=== PATIENT | female | born 1980 | race American Indian/Alaskan Native ===

== ENCOUNTER 2018-03-31 15:33 | Emergency (ER) | payer OTHER ==
[2018-03-31] MEDS ORDERED: Sodium Chloride 0.9% 1,000 ML IV STA ×2 (16:40→18:23)
[2018-03-31 16:41] VITALS: BMI 37.1
[2018-03-31] MEDS ORDERED: Albuterol-Ipratrop 3 mg / 0.5 (3 ml) UD IH STA ×2 (16:41→17:52)
--- NOTE | 2018-03-31 17:04 | ED PDOC ---
Arrival/HPI - General Historian: Patient - History of Present Illness Narrative History of Present Illness (Text): 03/31/18 17:11 37yr old female with a history of asthma presents today with worsening shortness of breath over the past week. Pt states today she was feeling hot and family member states the patient appeared short of breath with walking. pt states she was seen at [facility] [place] and treated for asthma exacerbation over a week ago. pt states she has been using asthma pump at home without improvement. pt c/o dry cough, upper abdominal pain and chest pain with cough. pt denies dizziness or weakness. family friend states patient looks fatigued. pt denies n/v/d/c. no other c omplaints. Time/Duration: 1 week <Carolyne Wolf - Last Filed: 03/31/18 19:06> <Dav Brooks - Last Filed: 04/01/18 09:52> <Antony Rosen - Last Filed: 04/03/18 18:31> - General Chief Complaint: Respiratory Distress Time Seen by Provider: 03/31/18 16:38 Past Medical History - Provider Review Nursing Documentation Reviewed: Yes - Travel History Have you recently traveled outside [place] w/in the past 3 mons?: No - Tetanus Immunization Tetanus Immunization: Unknown <Carolyne Wolf - Last Filed: 03/31/18 19:06> Family/Social History - Physician Review Nursing Documentation Reviewed: Yes Family/Social History: Unknown Family HX Smoking Status: Never Smoked Hx Alcohol Use: No Hx Substance Use: No <Carolyne Wolf - Last Filed: 03/31/18 19:06> Allergies/Home Meds <Carolyne Wolf - Last Filed: 03/31/18 19:06> <Dav Brooks - Last Filed: 04/01/18 09:52> <Antony Rosen - Last Filed: 04/03/18 18:31> Allergies/Adverse Reactions: Allergies Penicillins Allergy (Verified 03/31/18 16:39) URTICARIA Home Medications: Home Meds Medication Instructions Recorded Confirmed RX: Enalapril Maleate [Vasotec] 20 mg PO DAILY 03/31/18 04/01/18 RX: GlipiZIDE [Glucotrol] 5 mg PO DAILY 03/31/18 04/01/18 RX: Hydrochlorothiazide [Microzide] 12.5 mg PO DAILY 03/31/18 04/01/18 RX: Metformin HCl [Glucophage] 1,000 mg PO BID 03/31/18 04/01/18 RX: Metoprolol Succinate [Toprol 25 mg PO DAILY 03/31/18 04/01/18 Xl] Review of Systems - Review of Systems Constitutional: Fatigue. absent: Fevers ENT: Sinus Congestion. absent: Sore Throat Respiratory: SOB, Cough, Wheezing Cardiovascular: Chest Pain (with cough). absent: Palpitations Gastrointestinal: Abdominal Pain (upper abdominal pain with cough). absent: Constipation, Diarrhea, Nausea, Vomiting Genitourinary Female: absent: Dysuria, Frequency, Hematuria Musculoskeletal: absent: Arthralgias, Back Pain, Neck Pain Skin: absent: Rash, Pruritis Neurological: absent: Headache, Dizziness Psychiatric: absent: Anxiety, Depression <Carolyne Wolf T - Last Filed: 03/31/18 19:06> Physical Exam Vital Signs Reviewed: Yes Vital Signs Temp Pulse Resp BP Pulse Ox 03/31/18 16:25 98.0 F 113 H 20 102/71 100 Temperature: Afebrile Blood Pressure: Normal Pulse: Tachycardic Respiratory Rate: Normal Appearance: Positive for: Well-Appearing, Non-Toxic, Comfortable Pain Distress: None Mental Status: Positive for: Alert and Oriented X 3 - Systems Exam Head: Present: Atraumatic Mouth: Present: Moist Mucous Membranes Pharnyx: Present: Normal Nose (External): Present: Atraumatic Nose (Internal): Present: Normal Inspection Neck: Present: Normal Range of Motion Respiratory/Chest: Present: Good Air Exchange, Wheezes (wheezing noted bilaterally.). No: Clear to Auscultation, Respiratory Distress, Accessory Muscle Use, Decreased Breath Sounds, Tachypneic, Tender to Palpation Cardiovascular: Present: Tachycardic. No: Murmurs Abdomen: No: Tenderness, Distention, Rebound, Guarding Back: Present: Normal Inspection Upper Extremity: Present: Normal ROM Lower Extremity: Present: Normal ROM. No: CALF TENDERNESS Neurological: Present: GCS=15, Speech Normal Skin: Present: Warm, Dry, Normal Color. No: Rashes Psychiatric: Present: Alert, Oriented x 3 <Carolyne Wolf T - Last Filed: 03/31/18 19:06> Vital Signs Temp Pulse Resp BP Pulse Ox 03/31/18 19:55 98.2 F 97 H 18 117/81 97 03/31/18 19:50 98.3 F 113 H 16 116/81 100 03/31/18 18:24 97.8 F 110 H 24 100 03/31/18 16:46 20 100 03/31/18 16:25 98.0 F 113 H 20 102/71 100 <Dav Brooks - Last Filed: 04/01/18 09:52> Vital Signs Temp Pulse Resp BP Pulse Ox 03/31/18 19:55 98.2 F 97 H 18 117/81 97 03/31/18 19:50 98.3 F 113 H 16 116/81 100 03/31/18 18:24 97.8 F 110 H 24 100 03/31/18 16:46 20 100 03/31/18 16:25 98.0 F 113 H 20 102/71 100 <Antony Rosen - Last Filed: 04/03/18 18:31> Medical Decision Making ED Course and Treatment: 03/31/18 17:21 37yr old female with hx of asthma and DM presenting with worsening cough/sob. wheezing noted. pt given Solumedrol and duoneb given. NS iv bolus case discussed in depth with dr. rosen. cbc: wnl cmp; glucose; 340 lipase: wnl d-dimer; elevated trop; wnl UA; + glucose ekg: Sinus tachycardia [address] elevations normal axis and QTC 454 ; reviewed by dr. Rosen. cxr; wnl 03/31/18 18:51 pt reassessment; pt feeling much better after medications; lungs CTA bilaterally. after 1L NS; heart rate improved to 103. 2nd L NS iv bolus ordered. CTA: PENDING impression; asthma exacerbation increase fluids prednisone daily x 4 days albuterol nebulizer 3 times daily as needed for cough zithromax daily x 4 days. Tylenol for pain/fever reduction every 4 hours Follow up with the primary care physician within the next 2 days. Return immediately if symptoms worsen,persist or if new symptoms develop. 03/31/18 19:00 CASE SIGNED OUT TO DR. AMBROCIO PENDING CTA RESULTS; RE-EVALUATION AND DISPOSITION. Reassessment Condition: Re-examined, Improved - RAD Interpretation Radiology Orders: 03/31/18 16:39 CHEST PORTABLE [RAD] Stat - Medication Orders Current Medication Orders: Sodium Chloride (Sodium Chloride 0.9%) 1,000 mls @ 999 mls/hr IV .Q1H1M STA Stop: 03/31/18 17:40 Discontinued Medications Acetaminophen (Tylenol 325mg Tab) 975 mg PO STAT STA Stop: 03/31/18 16:41 Albuterol/Ipratropium (Duoneb 3 Mg/0.5 Mg (3 Ml) Ud) 3 ml IH STAT STA Stop: 03/31/18 16:42 <Carolyne Wolf T - Last Filed: 03/31/18 19:06> ED Course and Treatment: Spoke to Dr. Varghese(morning radiologist) whom after review of CTPE imaging concluded the study as suboptimal and is unable to rule out PE in the lower subsegmental vessels. Call made to patient discussing these findings and the urgency of returning to the ED for reevaluation today expressed. She is agreeable to returning to the ED as soon as possible. 04/01/18 09:52 - Lab Interpretations Lab Results: 03/31/18 17:20 03/31/18 17:20 Lab Results 03/31/18 17:20: PT 11.4, INR 1.00, APTT 30.6, D-Dimer, Quantitative 538 H 03/31/18 17:20: WBC 11.0, RBC 4.73, Hgb 12.9, Hct 39.8, MCV 84.1, MCH 27.3, MCHC 32.4, RDW 13.5, Plt Count 327, MPV 10.7, Gran % 76.5 H, Lymph % (Auto) 16.3 L, [place] % (Auto) 5.8, Eos % (Auto) 1.1 L, Baso % (Auto) 0.3, Gran # 8.43 H, Lymph # (Auto) 1.8, [place] # (Auto) 0.6, Eos # (Auto) 0.1, Baso # (Auto) 0.03 03/31/18 17:20: Sodium 137, Potassium 4.1, Chloride 100, Carbon Dioxide 27, Anion Gap 14, BUN 9, Creatinine 0.7, Est GFR ( Amer) > 60, Est GFR (Non- Af Amer) > 60, Random Glucose 340 H*, Calcium 9.9, Total Bilirubin 0.3, AST 23, ALT 31, Alkaline Phosphatase 71, Lactate Dehydrogenase 353, Total Creatine Kinase 112, Troponin I < 0.01, Total Protein 7.7, Albumin 4.3, Globulin 3.5, Albumin/Globulin Ratio 1.2, Lipase 161 03/31/18 17:00: Urine Color Yellow, Urine Appearance Clear, Urine pH 5.5, Ur Specific [place] 1.015, Urine Protein Negative, Urine Glucose (UA) >=1000, Urine Ketones Negative, Urine Blood Negative, Urine Nitrate Negative, Urine Bilirubin Negative, Urine Urobilinogen 0.2, Ur Leukocyte Esterase Negative - RAD Interpretation Radiology Orders: 03/31/18 16:39 CHEST PORTABLE [RAD] Stat 03/31/18 17:52 ANGIO CHEST PE PROTOCOL [CT] Stat - Medication Orders Current Medication Orders: Discontinued Medications Acetaminophen (Tylenol 325mg Tab) 975 mg PO STAT STA Stop: 03/31/18 16:41 Last Admin: 03/31/18 17:05 Dose: 975 mg [facility] Pain/Vitals Document 03/31/18 17:05 HOUSING RELOCATION (Rec: 03/31/18 17:06 HOUSING RELOCATION [facility]) Pain Reassessment Is This A Pain ReAssessment? Yes Sleep Is patient sleeping during reassessment? No Presence of Pain Presence of Pain Yes Pain Scale Used Protocol: PSCALES Pain Scale Used Numeric Location Pain Location Body Site Chest Description Intermittent Intensity 3 Scale Used Numeric Re-Assess: [facility] Pain/Vitals Document 03/31/18 18:05 HOUSING RELOCATION (Rec: 03/31/18 18:10 HOUSING RELOCATION [facility]) Pain Reassessment Is This A Pain ReAssessment? Yes Sleep Is patient sleeping during reassessment? No Presence of Pain Presence of Pain No Location Scale Used Numeric Albuterol/Ipratropium (Duoneb 3 Mg/0.5 Mg (3 Ml) Ud) 3 ml IH STAT STA Stop: 03/31/18 16:42 Last Admin: 03/31/18 17:06 Dose: 3 ml Albuterol/Ipratropium (Duoneb 3 Mg/0.5 Mg (3 Ml) Ud) 3 ml IH STAT STA Stop: 03/31/18 17:53 Last Admin: 03/31/18 18:44 Dose: 3 ml Azithromycin (Zithromax) 500 mg PO STAT STA; Protocol Stop: 10/12/18 19:04 Last Admin: 03/31/18 19:38 Dose: 500 mg Sodium Chloride (Sodium Chloride 0.9%) 1,000 mls @ 999 mls/hr IV .Q1H1M STA Stop: 03/31/18 17:40 Last Admin: 03/31/18 17:22 Dose: 999 mls/hr eMAR Start Stop Document 03/31/18 17:22 HOUSING RELOCATION (Rec: 03/31/18 17:23 HOUSING RELOCATION [facility]) Intravenous Solution Start Date 03/31/18 Start Time 17:22 Sodium Chloride (Sodium Chloride 0.9%) 1,000 mls @ 999 mls/hr IV .Q1H1M STA Stop: 03/31/18 19:23 Last Admin: 03/31/18 19:09 Dose: 999 mls/hr eMAR Start Stop Document 03/31/18 19:09 HOUSING RELOCATION (Rec: 03/31/18 19:10 HOUSING RELOCATION [facility]) Intravenous Solution Start Date 03/31/18 Start Time 19:09 Methylprednisolone (Solu-Medrol) 125 mg IVP STAT STA Stop: 03/31/18 17:12 Last Admin: 03/31/18 17:43 Dose: 125 mg IVP Administration Document 03/31/18 17:43 HOUSING RELOCATION (Rec: 03/31/18 17:45 HOUSING RELOCATION [facility]) Charges for Administration # of IVP Administrations 1 <BosantonioDav - Last Filed: 04/01/18 09:52> - Lab Interpretations Microbiology Results: Microbiology Results 03/31/18 17:20 Blood Blood Culture - Preliminary NO GROWTH AFTER 3 DAYS 03/31/18 17:05 Blood Blood Culture - Preliminary NO GROWTH AFTER 3 DAYS Lab Results: 03/31/18 17:20 03/31/18 17:20 Lab Results 03/31/18 17:20: PT 11.4, INR 1.00, APTT 30.6, D-Dimer, Quantitative 538 H 03/31/18 17:20: WBC 11.0, RBC 4.73, Hgb 12.9, Hct 39.8, MCV 84.1, MCH 27.3, MCHC 32.4, RDW 13.5, Plt Count 327, MPV 10.7, Gran % 76.5 H, Lymph % (Auto) 16.3 L, [place] % (Auto) 5.8, Eos % (Auto) 1.1 L, Baso % (Auto) 0.3, Gran # 8.43 H, Lymph # (Auto) 1.8, [place] # (Auto) 0.6, Eos # (Auto) 0.1, Baso # (Auto) 0.03 03/31/18 17:20: Sodium 137, Potassium 4.1, Chloride 100, Carbon Dioxide 27, Anion Gap 14, BUN 9, Creatinine 0.7, Est GFR ( Amer) > 60, Est GFR (Non- Af Amer) > 60, Random Glucose 340 H*, Calcium 9.9, Total Bilirubin 0.3, AST 23, ALT 31, Alkaline Phosphatase 71, Lactate Dehydrogenase 353, Total Creatine Kinase 112, Troponin I < 0.01, Total Protein 7.7, Albumin 4.3, Globulin 3.5, Albumin/Globulin Ratio 1.2, Lipase 161 03/31/18 17:00: Urine Color Yellow, Urine Appearance Clear, Urine pH 5.5, Ur Specific [place] 1.015, Urine Protein Negative, Urine Glucose (UA) >=1000, Urine Ketones Negative, Urine Blood Negative, Urine Nitrate Negative, Urine Bilirubin Negative, Urine Urobilinogen 0.2, Ur Leukocyte Esterase Negative - RAD Interpretation Radiology Orders: 03/31/18 16:39 CHEST PORTABLE [RAD] Stat 03/31/18 17:52 ANGIO CHEST PE PROTOCOL [CT] Stat - Medication Orders Current Medication Orders: Discontinued Medications Acetaminophen (Tylenol 325mg Tab) 975 mg PO STAT STA Stop: 03/31/18 16:41 Last Admin: 03/31/18 17:05 Dose: 975 mg [facility] Pain/Vitals Document 03/31/18 17:05 HOUSING RELOCATION (Rec: 03/31/18 17:06 HOUSING RELOCATION [facility]) Pain Reassessment Is This A Pain ReAssessment? Yes Sleep Is patient sleeping during reassessment? No Presence of Pain Presence of Pain Yes Pain Scale Used Protocol: PSCALES Pain Scale Used Numeric Location Pain Location Body Site Chest Description Intermittent Intensity 3 Scale Used Numeric Re-Assess: MAR Pain/Vitals Document 03/31/18 18:05 HOUSING RELOCATION (Rec: 03/31/18 18:10 HOUSING RELOCATION [facility]) Pain Reassessment Is This A Pain ReAssessment? Yes Sleep Is patient sleeping during reassessment? No Presence of Pain Presence of Pain No Location Scale Used Numeric Albuterol/Ipratropium (Duoneb 3 Mg/0.5 Mg (3 Ml) Ud) 3 ml IH STAT STA Stop: 03/31/18 16:42 Last Admin: 03/31/18 17:06 Dose: 3 ml Albuterol/Ipratropium (Duoneb 3 Mg/0.5 Mg (3 Ml) Ud) 3 ml IH STAT STA Stop: 03/31/18 17:53 Last Admin: 03/31/18 18:44 Dose: 3 ml Azithromycin (Zithromax) 500 mg PO STAT STA; Protocol Stop: 03/31/18 19:04 Last Admin: 03/31/18 19:38 Dose: 500 mg Sodium Chloride (Sodium Chloride 0.9%) 1,000 mls @ 999 mls/hr IV .Q1H1M STA Stop: 03/31/18 17:40 Last Admin: 03/31/18 17:22 Dose: 999 mls/hr eMAR Start Stop Document 03/31/18 17:22 HOUSING RELOCATION (Rec: 03/31/18 17:23 HOUSING RELOCATION [facility]) Intravenous Solution Start Date 03/31/18 Start Time 17:22 Sodium Chloride (Sodium Chloride 0.9%) 1,000 mls @ 999 mls/hr IV .Q1H1M STA Stop: 03/31/18 19:23 Last Admin: 03/31/18 19:09 Dose: 999 mls/hr eMAR Start Stop Document 03/31/18 19:09 HOUSING RELOCATION (Rec: 03/31/18 19:10 HOUSING RELOCATION [facility]) Intravenous Solution Start Date 03/31/18 Start Time 19:09 Methylprednisolone (Solu-Medrol) 125 mg IVP STAT STA Stop: 03/31/18 17:12 Last Admin: 03/31/18 17:43 Dose: 125 mg IVP Administration Document 03/31/18 17:43 HOUSING RELOCATION (Rec: 03/31/18 17:45 HOUSING RELOCATION [facility]) Charges for Administration # of IVP Administrations 1 <Antony Rosen - Last Filed: 04/03/18 18:31> - PA / DIE TROUBLE [employer]OOTER / Resident Statement / has reviewed & agrees with the documentation as recorded. <Antony Rosen Filed: 04/03/18 18:31> Disposition/Present on Arrival - Present on Arrival Any Indicators Present on Arrival: Yes History of DVT/PE: No History of Uncontrolled Diabetes: Yes Urinary Catheter: No History of Decub. Ulcer: No History Surgical Site Infection Following: None - Disposition Have Diagnosis and Disposition been Completed?: Yes Disposition Time: 18:53 Patient Plan: Discharge <AdolphbiCarolyne - Last Filed: 03/31/18 19:06> <Dav Brooks - Last Filed: 04/01/18 09:52> <Antony Rosen - Last Filed: 04/03/18 18:31> - Disposition Diagnosis: Asthma exacerbation, Hyperglycemia Disposition: HOME/ ROUTINE Condition: GOOD Discharge Instructions (ExitCare): Asthma, Adult (DC) Additional Instructions: increase fluids prednisone daily x 4 days albuterol nebulizer 3 times daily as needed for cough Zithomax daily x 4 days. Tylenol for pain/fever reduction every 4 hours Follow up with the primary care physician within the next 2 days. Return immediately if symptoms worsen,persist or if new symptoms develop. Prescriptions: RX: Albuterol HFA [Ventolin HFA 90 mcg/actuation (8 g)] 2 puff IH [id number] PRN #1 inhaler PRN Reason: Cough RX: Albuterol 0.083% [Albuterol 0.083% Inhal Cindy (2.5 mg/3 ml) UD] 1 vial IH TID PRN #1 packet PRN Reason: Cough RX: Nebulizer [Compact Compressor Nebulizer] 1 dev XX PRN PRN #1 dev PRN Reason: Cough RX: predniSONE [predniSONE Tab] 3 tab PO DAILY #12 tab Referrals: Meseret Muhammad MD [Medical Doctor] - Follow up with primary [facility] [employer] [facility] [Outside] - Follow up with primary Forms: [employer] (Indonesian), WORK NOTE
[2018-03-31 17:45] LABS: PH,URINE 5.5 (4.7-8.0); URINE BILIRUBIN NEGATIVE (NEGATIVE); URINE BLOOD NEGATIVE (NEGATIVE); URINE GLUCOSE (UA) >=1000 mg/dL (NEGATIVE); URINE LEUKOCYTE ESTERASE NEGATIVE Leu/uL (NEGATIVE); URINE PROTEIN NEGATIVE mg/dL (<30 mg/dL); URINE UROBILINOGEN 0.2 E.U./dL (<1 E.U./dL)
[2018-03-31 17:48] LABS: PARTIAL THROMBOPLASTIN TIME 30.6 Seconds (25.1-36.5); PROTHROMBIN TIME 11.4 SECONDS (9.4-12.5)
[2018-03-31 17:53] LABS: HEMOGLOBIN 12.9 g/dL (12.0-16.0); RBC 4.73 10^6/uL (3.5-6.1)
[2018-03-31 17:54] LABS: BASO # 0.03 K/mm3 (0.0-2.0); BASO % 0.3 % (0.0-3.0); EOS # 0.1 (0.0-0.7); EOS % 1.1 % (1.5-5.0); GRAN # 8.43 (1.4-6.5); GRAN % 76.5 % (50.0-68.0); LYMPH # 1.8 (1.2-3.4); LYMPH % 16.3 % (22.0-35.0); MEAN CELL VOLUME 84.1 fl (80.0-105.0); MEAN CORPUSCULAR HEMOGLOBIN 27.3 pg (25.0-35.0); MEAN CORPUSCULAR HGB CONC 32.4 g/dl (31.0-37.0); MEAN PLATELET VOLUME 10.7 fl (7.0-11.0); MONO # 0.6 (0.1-0.6); MONO % 5.8 % (1.0-6.0); RED CELL DISTRIBUTION WIDTH 13.5 % (11.5-14.5)
[2018-03-31 18:01] LABS: URINE APPEARANCE CLEAR (CLEAR); URINE COLOR YELLOW (YELLOW)
[2018-03-31 18:02] LABS: TROPONIN I < 0.01 ng/mL
[2018-03-31 18:09] LABS: ALB/GLOB RATIO 1.2 (1.1-1.8); ALBUMIN 4.3 g/dL (3.0-4.8); ALT/SGPT 31 U/L (7-56); AST/SGOT 23 U/L (14-36); BLOOD UREA NITROGEN 9 mg/dL (7-21); CALCIUM 9.9 mg/dL (8.4-10.5); GFR NON-AFRICAN AMERICAN > 60; LIPASE 161 U/L (23-300)
--- NOTE | 2018-03-31 18:12 | RAD ---
Date of service: 03/31/2018 HISTORY: cough/sob COMPARISON: No prior. FINDINGS: LUNGS: No active pulmonary disease. PLEURA: No significant pleural effusion identified, no pneumothorax apparent. CARDIOVASCULAR: Normal. OSSEOUS STRUCTURES: No significant abnormalities. VISUALIZED UPPER ABDOMEN: Normal. OTHER FINDINGS: None. IMPRESSION: No active disease.
[2018-03-31] MEDS ORDERED: Iohexol 350 MG/100 ML VIAL ONE (18:40)
[2018-03-31 21:14] VITALS: BP 117/81; PULSE 97; RESP 18; TEMP 98.2; O2SAT 97
--- NOTE | 2018-04-01 08:46 | CT ---
Date of service: 03/31/2018 PROCEDURE: CT Chest with contrast (Pulmonary Angiogram) HISTORY: SOB/cough COMPARISON: None available. TECHNIQUE: Axial computed tomography images were obtained of the chest in the pulmonary arterial phase of enhancement. Coronal and sagittal reformatted images were created and reviewed. Intravenous contrast dose: 100 mL Omnipaque 350 Radiation dose: Total exam DLP = 423.52 mGy-cm. This CT exam was performed using one or more of the following dose reduction techniques: Automated exposure control, adjustment of the mA and/or kV according to patient size, and/or use of iterative reconstruction technique. FINDINGS: PULMONARY ARTERIES: Technically limited. Unable to evaluate segmental and subsegmental pulmonary artery branches for pulmonary embolism. No large central pulmonary embolus identified in main and lobar pulmonary arteries. AORTA: No acute findings. No thoracic aortic aneurysm. LUNGS: Unremarkable. No nodule, mass or pulmonary consolidation. PLEURAL SPACES: Unremarkable. No effusion or pneumothorax. HEART: Unremarkable. No cardiomegaly. No significant pericardial effusion. LYMPH NODES: No lymphadenopathy. BONES, CHEST WALL: Unremarkable. No fracture or destructive lesion OTHER FINDINGS: Unremarkable. IMPRESSION: Limited examination. Unable to exclude pulmonary arterial embolism in segmental and subsegmental pulmonary artery branches. No large central embolus. Otherwise unremarkable examination. The preliminary findings for this examination were reported by [facility] at 7:33 p.m. on 03/31/2018. There is discordance of this report with the preliminary findings. The preliminary examination described an unremarkable pulmonary embolism protocol CT a of the chest. These findings and discrepancies were discussed by telephone with Dr. Brooks at 8:38 a.m. on 04/01/2018.
--- NOTE | 2018-04-01 08:48 | CARD ---
APPROVED REPORT Date of service: 03/31/2018 EKG Measurement Heart [id number] <Conclusion> Sinus tachycardia Moderate voltage criteria for LVH, may be normal variant Nonspecific T wave abnormality Abnormal ECG
== END 2018-03-31 19:50 | disposition home or self-care (01) ==
LOC: ED 15:33
DX: J45.901 Unspecified asthma with (acute) exacerbation (principal); R73.9 Hyperglycemia, unspecified
CPT/HCPCS: 71045; 71275; 80053; 81003; 82550; 83615; 83690; 84484; 85025; 85378; 85610; 85730; 87040; 93005; 94640; 96374; 99285; J2930; J7030; Q9967

== ENCOUNTER 2018-04-01 11:10 | Observation (INO) | payer OTHER ==
[2018-04-01 11:11] VITALS: BMI 37.1
[2018-04-01] MEDS ORDERED: Albuterol-Ipratrop 3 mg / 0.5 (3 ml) UD IH STA (12:14)
--- NOTE | 2018-04-01 12:16 | ED PDOC ---
Arrival/HPI - General Chief Complaint: Respiratory Distress Time Seen by Provider: 04/01/18 11:26 Historian: Patient - History of Present Illness Narrative History of Present Illness (Text): 04/01/18 12:13 37 y/o F w/ h/o asthma presenting to the Emergency department complaining of a productive cough with greenish/yellow sputum. She notes associated chest pressure/pain, palpitations, lightheadedness, and sweats. Of note, the patient was seen in the Emergency department last night for the same symptoms but was called back for further evaluation due to inconsistent findings on CT scan per reading radiologist. Patient denies any fever, chills, nausea, vomiting, diarrhea, back pain, neck pain, headache, dizziness, or any other complaints. No PMD Time/Duration: 1 week Symptom Onset: Gradual Symptom Course: Unchanged Severity Level: Mild Activities at Onset: Rest Context: Home Past Medical History - Provider Review Nursing Documentation Reviewed: Yes - Travel History Have you recently traveled outside [place] w/in the past 3 mons?: No - Tetanus Immunization Tetanus Immunization: Unknown - Cardiac Hx Hypertension: Yes - Pulmonary Hx Respiratory Disorders: Yes Hx Asthma: Yes - Endocrine/Metabolic Hx Diabetes Mellitus Type 2: Yes - Psychiatric Hx Substance Use: No Family/Social History - Physician Review Nursing Documentation Reviewed: Yes Family/Social History: Unknown Family HX Smoking Status: Never Smoked Hx Alcohol Use: No Hx Substance Use: No Allergies/Home Meds Allergies/Adverse Reactions: Allergies Penicillins Allergy (Verified 03/31/18 16:39) URTICARIA Home Medications: Home Meds Medication Instructions Recorded Confirmed Enalapril Maleate [Vasotec] 20 mg PO DAILY 03/31/18 04/01/18 GlipiZIDE [Glucotrol] 5 mg PO DAILY 03/31/18 04/01/18 Hydrochlorothiazide [Microzide] 12.5 mg PO DAILY 03/31/18 04/01/18 Metformin HCl [Glucophage] 1,000 mg PO BID 03/31/18 04/01/18 Metoprolol Succinate [Toprol Xl] 25 mg PO DAILY 03/31/18 04/01/18 Review of Systems - Physician Review All systems were reviewed & negative as marked: Yes - Review of Systems Constitutional: Normal Eyes: Normal ENT: Normal Respiratory: Cough Cardiovascular: Chest Pain, Palpitations Gastrointestinal: Normal. absent: Abdominal Pain, Diarrhea, Nausea, Vomiting Genitourinary Female: Normal. absent: Dysuria, Frequency Musculoskeletal: Normal. absent: Back Pain, Neck Pain Skin: Normal. absent: Rash Neurological: Other (lightheadedness) Endocrine: Normal Hemo/Lymphatic: Normal Psychiatric: Normal Physical Exam Vital Signs Reviewed: Yes Vital Signs Temp Pulse Resp BP Pulse Ox 04/01/18 12:06 20 04/01/18 11:30 98.1 F 98 H 18 120/80 98 Temperature: Afebrile Blood Pressure: Normal Pulse: Tachycardic Respiratory Rate: Normal Appearance: Positive for: Well-Appearing, Non-Toxic, Comfortable Pain Distress: None Mental Status: Positive for: Alert and Oriented X 3 - Systems Exam Head: Present: Atraumatic, Normocephalic Pupils: Present: PERRL Extroacular Muscles: Present: EOMI Conjunctiva: Present: Normal Mouth: Present: Moist Mucous Membranes Neck: Present: Normal Range of Motion Respiratory/Chest: Present: Clear to Auscultation, Good Air Exchange. No: Respiratory Distress, Accessory Muscle Use, Wheezes, Rales, Rhonchi, Tachypneic Cardiovascular: Present: Normal S1, S2, Tachycardic. No: Murmurs Abdomen: No: Tenderness, Distention, Peritoneal Signs Back: Present: Normal Inspection Upper Extremity: Present: Normal Inspection. No: Cyanosis, Edema Lower Extremity: Present: Normal Inspection. No: Edema, Tenderness (no calf tenderness) Neurological: Present: GCS=15, CN II-XII Intact, Speech Normal Skin: Present: Warm, Dry, Normal Color. No: Rashes Psychiatric: Present: Alert, Oriented x 3, Normal Insight, Normal Concentration Medical Decision Making ED Course and Treatment: 04/01/18 12:19 Impression: 37 year old female presents to the Emergency department complaining of a productive cough with greenish/yellow phlegm. Plan: -- VBG -- Labs -- D Dimer -- Chest X-ray -- Duoneb -- Lung Perf and Vent scan -- Reassess and disposition Progress Notes: 04/06/18 15:54 Labs reviewed with D-dimer elevated to 500s. Spoke to Dr. Dickens(hospitalist) of patient's clinical condition and he accepts patient onto his service. - Scribe Statement The provider has reviewed the documentation as recorded by the Scribe Rehana Busch All medical record entries made by the Hammad were at my direction and personally dictated by me. I have reviewed the chart and agree that the record accurately reflects my personal performance of the history, physical exam, medical decision making, and the department course for this patient. I have also personally directed, reviewed, and agree with the discharge instructions and disposition. Disposition/Present on Arrival - Present on Arrival Any Indicators Present on Arrival: Yes History of DVT/PE: No History of Uncontrolled Diabetes: Yes Urinary Catheter: No History of Decub. Ulcer: No History Surgical Site Infection Following: None - Disposition Have Diagnosis and Disposition been Completed?: Yes Diagnosis: Dyspnea Disposition: HOSPITALIZED Disposition Time: 12:05 Patient Plan: Discharge Condition: GOOD
[2018-04-01 12:26] LABS: GRAN # 14.35 (1.4-6.5); GRAN % 87.7 % (50.0-68.0); HEMOGLOBIN 12.4 g/dL (12.0-16.0); LYMPH # 1.5 (1.2-3.4); LYMPH % 8.9 % (22.0-35.0); MEAN CELL VOLUME 83.3 fl (80.0-105.0); MEAN CORPUSCULAR HEMOGLOBIN 27.3 pg (25.0-35.0); MEAN CORPUSCULAR HGB CONC 32.8 g/dl (31.0-37.0); MEAN PLATELET VOLUME 10.6 fl (7.0-11.0); MONO # 0.6 (0.1-0.6); MONO % 3.4 % (1.0-6.0); RBC 4.54 10^6/uL (3.5-6.1); RED CELL DISTRIBUTION WIDTH 13.6 % (11.5-14.5); WHITE BLOOD COUNT 16.4 10^3/ul (4.5-11.0)
[2018-04-01 12:36] LABS: VENOUS BLOOD GAS BASE EXCESS 2.5 mmol/L (0.0-2.0); VENOUS BLOOD GAS PO2 124 mm/Hg (30-55)
[2018-04-01 12:45] LABS: B-TYPE NATRIURETIC PEPTIDE 87.8 pg/mL (0-450)
[2018-04-01 12:47] LABS: ALB/GLOB RATIO 1.3 (1.1-1.8); ALBUMIN 4.1 g/dL (3.0-4.8); ALT/SGPT 35 U/L (7-56); AST/SGOT 24 U/L (14-36); BLOOD UREA NITROGEN 11 mg/dL (7-21); CALCIUM 9.7 mg/dL (8.4-10.5); GFR NON-AFRICAN AMERICAN > 60
[2018-04-01] MEDS ORDERED: Sodium Chloride 0.9% 1,000 ML IV STA (13:40)
[2018-04-01 13:44] LABS: INR 1.04; PARTIAL THROMBOPLASTIN TIME 27.1 Seconds (25.1-36.5)
--- NOTE | 2018-04-01 16:08 | RAD ---
Date of service: 04/01/2018 HISTORY: persistent cough COMPARISON: 03/31/2018 FINDINGS: LUNGS: No active pulmonary disease. PLEURA: No significant pleural effusion identified, no pneumothorax apparent. CARDIOVASCULAR: Normal. OSSEOUS STRUCTURES: No significant abnormalities. VISUALIZED UPPER ABDOMEN: Normal. OTHER FINDINGS: None. IMPRESSION: No active disease.
--- NOTE | 2018-04-01 17:06 | CP.PCM.HP ---
<Davis Vinson - Last Filed: 04/01/18 18:46> History of Present Illness - History of Present Illness History of Present Illness: Davis Vinson PGY1 History and Physical for Dr Longoria Pt is a 37yo female with a PMH of DM, HTN, GERD, asthma presents to the ED complaining of cough and SOB. Her sister is also present during the history and physical. Pt states she has had a cough on and off for about 1 year. She presented to the hospital on 03-18-18 for asthma exacerbation. Pt states she is frequently around second hand smoke. She reports having a cough with productive green-yellow sputum. Pt states she came to the hospital last night for similar symptoms. Pt was called back to the hospital due to inconsistent findings on her chest CT. Pt denies every having a PE, DVT or any other coagulation disorder. Pt states she experienced some chest pain, palpitations, and lightheadedness. PMH: DM, HTN, GERD, Asthma PSH: T/A, "precancerous cervical cells" FH: Mother 64, HTN, Scleroderma, SLE Father 74, [place], HTN SH: denies tobacco, denies alcohol, denies drug use., lives in [place], can not work, on disability Home meds: Metformin 1000BID, Omeprazole 40, Metoprolol Succinate 25, Ferrous sulfate 325 TID, Glipizide, [id number], HCTZ 12.5 Allergies: PNC Present on Admission - Present on Admission Any Indicators Present on Admission: No Review of Systems - Review of Systems Review of Systems: please see HPI Past Patient History - Tetanus Immunizations Tetanus Immunization: Unknown - Past Social History Smoking Status: Never Smoked - CARDIAC Hx Hypertension: Yes - PULMONARY Hx Respiratory Disorders: Yes Hx Asthma: Yes - ENDOCRINE/METABOLIC Hx Diabetes Mellitus Type 2: Yes - PSYCHIATRIC Hx Substance Use: No Meds Allergies/Adverse Reactions: Allergies Allergy/AdvReac Type Severity Reaction Status Date / Time Penicillins Allergy URTICARIA Verified 03/31/18 16:39 Physical Exam - Constitutional Appears: Non-toxic, No Acute Distress - Head Exam Head Exam: ATRAUMATIC, NORMAL INSPECTION, NORMOCEPHALIC - Eye Exam Eye Exam: EOMI, Normal appearance - ENT Exam ENT Exam: Mucous Membranes Moist, Normal Exam - Respiratory Exam Respiratory Exam: Wheezes, NORMAL BREATHING PATTERN. absent: Accessory Muscle Use, Decreased Breath Sounds, Respiratory Distress, Stridor - Cardiovascular Exam Cardiovascular Exam: RRR, +S1, +S2. absent: Diastolic murmur, Systolic Murmur - GI/Abdominal Exam GI & Abdominal Exam: Normal Bowel Sounds, Soft. absent: Distended - Extremities Exam Extremities exam: Positive for: full ROM, pedal pulses present. Negative for: calf tenderness, pedal edema, tenderness - Neurological Exam Neurological exam: Alert, Oriented x3 - Psychiatric Exam Psychiatric exam: Normal Affect, Normal Mood - Skin Skin Exam: Dry, Normal Color, Warm Results - Vital Signs Recent Vital Signs: Last Vital Signs Temp 98.1 F 04/01/18 14:15 Pulse 94 H 04/01/18 14:15 Resp 19 04/01/18 14:15 BP 113/68 04/01/18 14:15 Pulse Ox 97 04/01/18 14:15 - Labs Result Diagrams: 04/01/18 12:00 04/01/18 12:00 Labs: Laboratory Results - last 24 hr 04/01/18 04/01/18 04/01/18 12:00 12:00 12:00 WBC 16.4 H D RBC 4.54 Hgb 12.4 Hct 37.8 MCV 83.3 MCH 27.3 MCHC 32.8 RDW 13.6 Plt Count 327 MPV 10.6 Gran % 87.7 H Lymph % (Auto) 8.9 L [place] % (Auto) 3.4 Eos % (Auto) 0.0 L Baso % (Auto) 0.0 Gran # 14.35 H Lymph # (Auto) 1.5 [place] # (Auto) 0.6 Eos # (Auto) 0.0 Baso # (Auto) 0.00 PT Cancelled INR Cancelled APTT Cancelled D-Dimer, Quantitative Cancelled pO2 VBG pH VBG pCO2 VBG HCO3 VBG Total CO2 VBG O2 Sat (Calc) VBG Base Excess VBG Potassium Glucose Lactate FiO2 Sodium 134 Potassium 4.4 Chloride 98 Carbon Dioxide 25 Anion Gap 15 BUN 11 Creatinine 0.6 L Est GFR ( Amer) > 60 Est GFR (Non-Af Amer) > 60 POC Glucose (mg/dL) Random Glucose 311 H* Calcium 9.7 Magnesium 1.8 Total Bilirubin 0.7 AST 24 ALT 35 Alkaline Phosphatase 66 NT-Pro-B Natriuret Pep 87.8 Total Protein 7.5 Albumin 4.1 Globulin 3.3 Albumin/Globulin Ratio 1.3 Venous Blood Potassium 04/01/18 04/01/18 04/01/18 12:30 13:20 16:26 WBC RBC Hgb Hct MCV MCH MCHC RDW Plt Count MPV Gran % Lymph % (Auto) [place] % (Auto) Eos % (Auto) Baso % (Auto) Gran # Lymph # (Auto) [place] # (Auto) Eos # (Auto) Baso # (Auto) PT 12.0 INR 1.04 APTT 27.1 D-Dimer, Quantitative 547 H pO2 124 H VBG pH 7.40 VBG pCO2 45.0 VBG HCO3 27.9 VBG Total CO2 29.3 H VBG O2 Sat (Calc) 99.7 H VBG Base Excess 2.5 H VBG Potassium 4.1 Glucose 325 H Lactate 1.3 FiO2 21.0 Sodium 133.0 Potassium Chloride 101.0 Carbon Dioxide Anion Gap BUN Creatinine Est GFR ( Amer) Est GFR (Non-Af Amer) POC Glucose (mg/dL) 230 H Random Glucose Calcium Magnesium Total Bilirubin AST ALT Alkaline Phosphatase NT-Pro-B Natriuret Pep Total Protein Albumin Globulin Albumin/Globulin Ratio Venous Blood Potassium 4.1 Assessment & Plan - Assessment and Plan (Free Text) Assessment: Pt is a 37yo female with a PMH of DM, HTN, GERD, asthma presents to the ED complaining of cough and SOB. She presented to the hospital on 03-18-18 for asthma exacerbation. She reports having a cough with productive green-yellow sputum. Pt called back to the hospital for admission due to inconsistent findings on her chest CT. Plan: Inconsistencies found on CT, rule out PE - pt called back to hospital due to inconsistencies found on CT, unable to exclude PE in segmental and subsegmental pulmonary artery branches - V/Q scan- results pending - trend trop x3 - trend EKG x3 Asthma exacerbation - WBC 16.4 - duonebs FLORA and PRN - low dose steroids 20mg q12h DM - ISS - accuchecks - continue glipizide - hold metformin HTN - home enalipril - home metoprolol succinate 25 - HCTZ 12.5 GERD - protonix Ppx - protonix - hold lovenox, until V/Q scan is read Pt seen, examined, assessment and plan discussed with Dr Swati Vinson PGY1, Internal Medicine Resident - Date & Time Date: 04/01/18 Time: 17:09 <Franky Longoria - Last Filed: 04/02/18 07:53> Results - Vital Signs Recent Vital Signs: Last Vital Signs Temp 98.5 F 04/01/18 17:15 Pulse 98 H 04/01/18 17:15 Resp 20 04/01/18 17:59 BP 129/82 04/01/18 17:15 Pulse Ox 100 04/01/18 17:15 - Labs Result Diagrams: 04/01/18 19:15 04/01/18 12:00 Labs: Laboratory Results - last 24 hr 04/01/18 04/01/18 04/01/18 12:00 12:00 12:00 WBC 16.4 H D RBC 4.54 Hgb 12.4 Hct 37.8 MCV 83.3 MCH 27.3 MCHC 32.8 RDW 13.6 Plt Count 327 MPV 10.6 Gran % 87.7 H Lymph % (Auto) 8.9 L [place] % (Auto) 3.4 Eos % (Auto) 0.0 L Baso % (Auto) 0.0 Gran # 14.35 H Lymph # (Auto) 1.5 [place] # (Auto) 0.6 Eos # (Auto) 0.0 Baso # (Auto) 0.00 PT Cancelled INR Cancelled APTT Cancelled D-Dimer, Quantitative Cancelled pO2 VBG pH VBG pCO2 VBG HCO3 VBG Total CO2 VBG O2 Sat (Calc) VBG Base Excess VBG Potassium Glucose Lactate FiO2 Sodium 134 Potassium 4.4 Chloride 98 Carbon Dioxide 25 Anion Gap 15 BUN 11 Creatinine 0.6 L Est GFR ( Amer) > 60 Est GFR (Non-Af Amer) > 60 POC Glucose (mg/dL) Random Glucose 311 H* Calcium 9.7 Magnesium 1.8 Total Bilirubin 0.7 AST 24 ALT 35 Alkaline Phosphatase 66 NT-Pro-B Natriuret Pep 87.8 Total Protein 7.5 Albumin 4.1 Globulin 3.3 Albumin/Globulin Ratio 1.3 Venous Blood Potassium 04/01/18 04/01/18 04/01/18 12:30 13:20 16:26 WBC RBC Hgb Hct MCV MCH MCHC RDW Plt Count MPV Gran % Lymph % (Auto) [place] % (Auto) Eos % (Auto) Baso % (Auto) Gran # Lymph # (Auto) [place] # (Auto) Eos # (Auto) Baso # (Auto) PT 12.0 INR 1.04 APTT 27.1 D-Dimer, Quantitative 547 H pO2 124 H VBG pH 7.40 VBG pCO2 45.0 VBG HCO3 27.9 VBG Total CO2 29.3 H VBG O2 Sat (Calc) 99.7 H VBG Base Excess 2.5 H VBG Potassium 4.1 Glucose 325 H Lactate 1.3 FiO2 21.0 Sodium 133.0 Potassium Chloride 101.0 Carbon Dioxide Anion Gap BUN Creatinine Est GFR ( Amer) Est GFR (Non-Af Amer) POC Glucose (mg/dL) 230 H Random Glucose Calcium Magnesium Total Bilirubin AST ALT Alkaline Phosphatase NT-Pro-B Natriuret Pep Total Protein Albumin Globulin Albumin/Globulin Ratio Venous Blood Potassium 4.1 04/01/18 04/01/18 04/02/18 19:15 21:44 07:26 WBC 13.5 H RBC 4.20 Hgb 11.5 L Hct 35.2 L MCV 83.8 MCH 27.4 MCHC 32.7 RDW 13.7 Plt Count 296 MPV 9.9 Gran % 79.9 H Lymph % (Auto) 12.7 L [place] % (Auto) 7.3 H Eos % (Auto) 0.0 L Baso % (Auto) 0.1 Gran # 10.80 H Lymph # (Auto) 1.7 [place] # (Auto) 1.0 H Eos # (Auto) 0.0 Baso # (Auto) 0.01 PT INR APTT D-Dimer, Quantitative pO2 VBG pH VBG pCO2 VBG HCO3 VBG Total CO2 VBG O2 Sat (Calc) VBG Base Excess VBG Potassium Glucose Lactate FiO2 Sodium Potassium Chloride Carbon Dioxide Anion Gap BUN Creatinine Est GFR ( Amer) Est GFR (Non-Af Amer) POC Glucose (mg/dL) 361 H 306 H Random Glucose Calcium Magnesium Total Bilirubin AST ALT Alkaline Phosphatase NT-Pro-B Natriuret Pep Total Protein Albumin Globulin Albumin/Globulin Ratio Venous Blood Potassium Attending/Attestation - Attestation I have personally seen and examined this patient.: Yes I have fully participated in the care of the patient.: Yes I have reviewed all pertinent clinical information: Yes Notes (Text): 04/01/18 37 year old female with past medical history of hypertension and diabetes who presented with cough and shortness of breath secondary to asthma exacerbation. She is started on duonebs and iv steroids. D-dimer was also elevated. CT angiogram was negative for large, central PE; cannot exclude segmental or subsegmental pulmonary artery branches emboli. She underwent V/Q this afternoon; will follow. She denies any calf tenderness or swelling. Franky Longoria MD Hospitalist.
[2018-04-01] MEDS ORDERED: Albuterol-Ipratrop 3 mg / 0.5 (3 ml) UD IH PRN (17:36)
[2018-04-01 18:03] VITALS: RESP 20
[2018-04-01 19:31] LABS: BASO # 0.01 K/mm3 (0.0-2.0); BASO % 0.1 % (0.0-3.0); GRAN # 10.8 (1.4-6.5); GRAN % 79.9 % (50.0-68.0); HEMOGLOBIN 11.5 g/dL (12.0-16.0); LYMPH # 1.7 (1.2-3.4); LYMPH % 12.7 % (22.0-35.0); MEAN CELL VOLUME 83.8 fl (80.0-105.0); MEAN CORPUSCULAR HEMOGLOBIN 27.4 pg (25.0-35.0); MEAN CORPUSCULAR HGB CONC 32.7 g/dl (31.0-37.0); MEAN PLATELET VOLUME 9.9 fl (7.0-11.0); MONO % 7.3 % (1.0-6.0); RBC 4.2 10^6/uL (3.5-6.1); RED CELL DISTRIBUTION WIDTH 13.7 % (11.5-14.5); WHITE BLOOD COUNT 13.5 10^3/ul (4.5-11.0)
[2018-04-01] MEDS: Albuterol-Ipratrop 3 mg / 0.5 (3 ml) UD IH SCH (20:30)
[2018-04-01] MEDS: MethylPREDNISolone 40 mg Vial IVP SCH (22:36)
[2018-04-01] MEDS: Insulin Reg-MEDIUM-Coverage SC SCH (22:36)
[2018-04-02] MEDS: Albuterol-Ipratrop 3 mg / 0.5 (3 ml) UD IH SCH ×3 (01:46→14:25)
[2018-04-02] MEDS ORDERED: Pantoprazole 40 mg EC Tab PO SCH (06:00)
[2018-04-02] MEDS: Insulin Reg-MEDIUM-Coverage SC SCH ×3 (08:19→16:32)
[2018-04-02 08:40] LABS: BASO # 0.01 K/mm3 (0.0-2.0); BASO % 0.1 % (0.0-3.0); GRAN # 8.89 (1.4-6.5); HEMOGLOBIN 11.4 g/dL (12.0-16.0); LYMPH # 0.9 (1.2-3.4); LYMPH % 9.4 % (22.0-35.0); MEAN CELL VOLUME 84.2 fl (80.0-105.0); MEAN CORPUSCULAR HEMOGLOBIN 27.3 pg (25.0-35.0); MEAN CORPUSCULAR HGB CONC 32.5 g/dl (31.0-37.0); MEAN PLATELET VOLUME 10.5 fl (7.0-11.0); MONO # 0.2 (0.1-0.6); MONO % 1.5 % (1.0-6.0); RBC 4.17 10^6/uL (3.5-6.1); RED CELL DISTRIBUTION WIDTH 13.7 % (11.5-14.5)
[2018-04-02 09:16] LABS: ALB/GLOB RATIO 1.2 (1.1-1.8); ALBUMIN 3.5 g/dL (3.0-4.8); ALT/SGPT 40 U/L (7-56); AST/SGOT 23 U/L (14-36); BLOOD UREA NITROGEN 12 mg/dL (7-21); CALCIUM 8.9 mg/dL (8.4-10.5); GFR NON-AFRICAN AMERICAN > 60
[2018-04-02] MEDS ORDERED: Metoprolol Succinate 25 mg XL Tab PO SCH (10:00)
[2018-04-02] MEDS: MethylPREDNISolone 40 mg Vial IVP SCH (10:04)
[2018-04-02 10:12] VITALS: BP 124/79; PULSE 109
[2018-04-02 10:20] VITALS: TEMP 98; O2SAT 97
--- NOTE | 2018-04-02 11:39 | CP.PCM.DIS ---
Provider - Provider Date of Admission: 04/01/18 14:34 Attending physician: Franky Longoria MD Primary care physician: Antony Johnson APN Time Spent in preparation of Discharge (in minutes): 45 Hospital Course - Lab Results Lab Results: Most Recent Lab Values WBC 10.0 10^3/ul (4.5-11.0) D 04/02/18 07:00 RBC 4.17 10^6/uL (3.5-6.1) 04/02/18 07:00 Hgb 11.4 g/dL (12.0-16.0) L 04/02/18 07:00 Hct 35.1 % (36.0-48.0) L 04/02/18 07:00 MCV 84.2 fl (80.0-105.0) 04/02/18 07:00 MCH 27.3 pg (25.0-35.0) 04/02/18 07:00 MCHC 32.5 g/dl (31.0-37.0) 04/02/18 07:00 RDW 13.7 % (11.5-14.5) 04/02/18 07:00 Plt Count 281 10^3/uL (120.0-450.0) 04/02/18 07:00 MPV 10.5 fl (7.0-11.0) 04/02/18 07:00 Gran % 89.0 % (50.0-68.0) H 04/02/18 07:00 Lymph % (Auto) 9.4 % (22.0-35.0) L 04/02/18 07:00 [place] % (Auto) 1.5 % (1.0-6.0) 04/02/18 07:00 Eos % (Auto) 0.0 % (1.5-5.0) L 04/02/18 07:00 Baso % (Auto) 0.1 % (0.0-3.0) 04/02/18 07:00 Gran # 8.89 (1.4-6.5) H 04/02/18 07:00 Lymph # (Auto) 0.9 (1.2-3.4) L 04/02/18 07:00 [place] # (Auto) 0.2 (0.1-0.6) 04/02/18 07:00 Eos # (Auto) 0.0 (0.0-0.7) 04/02/18 07:00 Baso # (Auto) 0.01 K/mm3 (0.0-2.0) 04/02/18 07:00 PT 12.0 SECONDS (9.4-12.5) 04/01/18 13:20 INR 1.04 04/01/18 13:20 APTT 27.1 Seconds (25.1-36.5) 04/01/18 13:20 D-Dimer, Quantitative 547 ng/mlDDU (0-243) H 04/01/18 13:20 pO2 124 mm/Hg (30-55) H 04/01/18 12:30 VBG pH 7.40 (7.32-7.43) 04/01/18 12:30 VBG pCO2 45.0 (40-60) 04/01/18 12:30 VBG HCO3 27.9 mmol/l (21-28) 04/01/18 12:30 VBG Total CO2 29.3 mmol.L (22-28) H 04/01/18 12:30 VBG O2 Sat (Calc) 99.7 % (40-65) H 04/01/18 12:30 VBG Base Excess 2.5 mmol/L (0.0-2.0) H 04/01/18 12:30 VBG Potassium 4.1 mmol/L (3.6-5.2) 04/01/18 12:30 Sodium 133.0 mmol/L (132-148) 04/01/18 12:30 Chloride 101.0 mmol/L (98-107) 04/01/18 12:30 Glucose 325 mg/dl (65-105) H 04/01/18 12:30 Lactate 1.3 mmol/L (0.7-2.1) 04/01/18 12:30 FiO2 21.0 % 04/01/18 12:30 Sodium 134 mmol/L (132-148) 04/02/18 07:00 Potassium 4.4 mmol/L (3.6-5.0) 04/02/18 07:00 Chloride 100 mmol/L (98-107) 04/02/18 07:00 Carbon Dioxide 26 mmol/L (21-33) 04/02/18 07:00 Anion Gap 12 (10-20) 04/02/18 07:00 BUN 12 mg/dL (7-21) 04/02/18 07:00 Creatinine 0.6 mg/dl (0.7-1.2) L 04/02/18 07:00 Est GFR ( Amer) > 60 04/02/18 07:00 Est GFR (Non-Af Amer) > 60 04/02/18 07:00 POC Glucose (mg/dL) 306 mg/dL (65-110) H 04/02/18 07:26 Random Glucose 337 mg/dL (70-110) H* 04/02/18 07:00 Calcium 8.9 mg/dL (8.4-10.5) 04/02/18 07:00 Magnesium 1.8 mg/dL (1.7-2.2) 04/01/18 12:00 Total Bilirubin 0.4 mg/dL (0.2-1.3) 04/02/18 07:00 AST 23 U/L (14-36) 04/02/18 07:00 ALT 40 U/L (7-56) 04/02/18 07:00 Alkaline Phosphatase 59 U/L (38-126) 04/02/18 07:00 NT-Pro-B Natriuret Pep 87.8 pg/mL (0-450) 04/01/18 12:00 Total Protein 6.4 g/dL (5.8-8.3) 04/02/18 07:00 Albumin 3.5 g/dL (3.0-4.8) 04/02/18 07:00 Globulin 2.9 gm/dL 04/02/18 07:00 Albumin/Globulin Ratio 1.2 (1.1-1.8) 04/02/18 07:00 Venous Blood Potassium 4.1 mmol/L (3.6-5.2) 04/01/18 12:30 Discharge Exam - Head Exam Head Exam: ATRAUMATIC, NORMAL INSPECTION, NORMOCEPHALIC Discharge Plan - Discharge Medications Prescriptions: Methylprednisolone [Medrol Dose Pack (21 tabs)] See Taper PO DAILY #21 mg - Follow Up Plan Condition: GOOD Disposition: HOME/ ROUTINE Additional Instructions: 1. please follow up with your primary care physician within one week 2. please resume home meds, take as directed by your primary care physician 3. please take your Medrol does pack taper, as directed 4. If your symptoms return or worsen, please go to the nearest emergency department as soon as possible Referrals: Antony Johnson APN [Primary Care Provider] -
--- NOTE | 2018-04-02 14:30 | CP.PCM.DIS ---
<Davis Vinson - Last Filed: 04/02/18 14:31> Provider - Provider Date of Admission: 04/01/18 14:34 Attending physician: Franky Longoria MD Primary care physician: Antony Johnson APN Time Spent in preparation of Discharge (in minutes): 45 Diagnosis - Discharge Diagnosis (1) Asthma exacerbation Status: Acute Priority: High (2) Diabetes Status: Chronic Priority: High (3) HTN (hypertension) Status: Chronic Priority: Medium (4) HTN (hypertension) Status: Chronic Priority: Medium (5) GERD (gastroesophageal reflux disease) Status: Chronic Priority: Medium Hospital Course - Lab Results Lab Results: Most Recent Lab Values WBC 10.0 10^3/ul (4.5-11.0) D 04/02/18 07:00 RBC 4.17 10^6/uL (3.5-6.1) 04/02/18 07:00 Hgb 11.4 g/dL (12.0-16.0) L 04/02/18 07:00 Hct 35.1 % (36.0-48.0) L 04/02/18 07:00 MCV 84.2 fl (80.0-105.0) 04/02/18 07:00 MCH 27.3 pg (25.0-35.0) 04/02/18 07:00 MCHC 32.5 g/dl (31.0-37.0) 04/02/18 07:00 RDW 13.7 % (11.5-14.5) 04/02/18 07:00 Plt Count 281 10^3/uL (120.0-450.0) 04/02/18 07:00 MPV 10.5 fl (7.0-11.0) 04/02/18 07:00 Gran % 89.0 % (50.0-68.0) H 04/02/18 07:00 Lymph % (Auto) 9.4 % (22.0-35.0) L 04/02/18 07:00 [place] % (Auto) 1.5 % (1.0-6.0) 04/02/18 07:00 Eos % (Auto) 0.0 % (1.5-5.0) L 04/02/18 07:00 Baso % (Auto) 0.1 % (0.0-3.0) 04/02/18 07:00 Gran # 8.89 (1.4-6.5) H 04/02/18 07:00 Lymph # (Auto) 0.9 (1.2-3.4) L 04/02/18 07:00 [place] # (Auto) 0.2 (0.1-0.6) 04/02/18 07:00 Eos # (Auto) 0.0 (0.0-0.7) 04/02/18 07:00 Baso # (Auto) 0.01 K/mm3 (0.0-2.0) 04/02/18 07:00 PT 12.0 SECONDS (9.4-12.5) 04/01/18 13:20 INR 1.04 04/01/18 13:20 APTT 27.1 Seconds (25.1-36.5) 04/01/18 13:20 D-Dimer, Quantitative 547 ng/mlDDU (0-243) H 04/01/18 13:20 pO2 124 mm/Hg (30-55) H 04/01/18 12:30 VBG pH 7.40 (7.32-7.43) 04/01/18 12:30 VBG pCO2 45.0 (40-60) 04/01/18 12:30 VBG HCO3 27.9 mmol/l (21-28) 04/01/18 12:30 VBG Total CO2 29.3 mmol.L (22-28) H 04/01/18 12:30 VBG O2 Sat (Calc) 99.7 % (40-65) H 04/01/18 12:30 VBG Base Excess 2.5 mmol/L (0.0-2.0) H 04/01/18 12:30 VBG Potassium 4.1 mmol/L (3.6-5.2) 04/01/18 12:30 Sodium 133.0 mmol/L (132-148) 04/01/18 12:30 Chloride 101.0 mmol/L (98-107) 04/01/18 12:30 Glucose 325 mg/dl (65-105) H 04/01/18 12:30 Lactate 1.3 mmol/L (0.7-2.1) 04/01/18 12:30 FiO2 21.0 % 04/01/18 12:30 Sodium 134 mmol/L (132-148) 04/02/18 07:00 Potassium 4.4 mmol/L (3.6-5.0) 04/02/18 07:00 Chloride 100 mmol/L (98-107) 04/02/18 07:00 Carbon Dioxide 26 mmol/L (21-33) 04/02/18 07:00 Anion Gap 12 (10-20) 04/02/18 07:00 BUN 12 mg/dL (7-21) 04/02/18 07:00 Creatinine 0.6 mg/dl (0.7-1.2) L 04/02/18 07:00 Est GFR ( Amer) > 60 04/02/18 07:00 Est GFR (Non-Af Amer) > 60 04/02/18 07:00 POC Glucose (mg/dL) 306 mg/dL (65-110) H 04/02/18 07:26 Random Glucose 337 mg/dL (70-110) H* 04/02/18 07:00 Calcium 8.9 mg/dL (8.4-10.5) 04/02/18 07:00 Magnesium 1.8 mg/dL (1.7-2.2) 04/01/18 12:00 Total Bilirubin 0.4 mg/dL (0.2-1.3) 04/02/18 07:00 AST 23 U/L (14-36) 04/02/18 07:00 ALT 40 U/L (7-56) 04/02/18 07:00 Alkaline Phosphatase 59 U/L (38-126) 04/02/18 07:00 NT-Pro-B Natriuret Pep 87.8 pg/mL (0-450) 04/01/18 12:00 Total Protein 6.4 g/dL (5.8-8.3) 04/02/18 07:00 Albumin 3.5 g/dL (3.0-4.8) 04/02/18 07:00 Globulin 2.9 gm/dL 04/02/18 07:00 Albumin/Globulin Ratio 1.2 (1.1-1.8) 04/02/18 07:00 Venous Blood Potassium 4.1 mmol/L (3.6-5.2) 04/01/18 12:30 - Hospital Course Hospital Course: Pt is a 37yo female with a PMH of DM, HTN, GERD, asthma presented to the ED complaining of cough and SOB. Pt states she has had a cough on and off for about 1 year. She presented to the hospital on 03-18-18 for asthma exacerbation. Pt states she is frequently around second hand smoke. She reports having a cough with productive green-yellow sputum. Pt states she came to the hospital the night before admission for similar symptoms. Pt was called back to the hospital due to inconsistent findings on her chest CT which may have been indicative of a subsegmental pulmonary embolus Pt denies every having a PE, DVT or any other coagulation disorder. During her hospital stay, pt was given a V/Q scan which was read a low probability scan for pulmonary embolus. Troponins and EKG were both negative for signs of cardiac ischemia. Pt was concurrently treated for an asthma exacerbation with duonebs and low dose steriods. Pt was advised to follow up with her primary care physician within 1 week of discharge. She was advised to restart her home medication which she takes for her chronic conditions. Pt was advised to return to the nearest emergency department if her symptoms returned or worsened. - Date & Time of H&P Date of H&P: 04/02/18 Time of H&P: 14:30 Discharge Exam - Head Exam Head Exam: ATRAUMATIC, NORMAL INSPECTION, NORMOCEPHALIC - Eye Exam Eye Exam: EOMI - ENT Exam ENT Exam: Mucous Membranes Moist - Respiratory Exam Respiratory Exam: Accessory Muscle Use. absent: Respiratory Distress - Cardiovascular Exam Cardiovascular Exam: RRR, +S1, +S2. absent: Diastolic murmur, Systolic Murmur - GI/Abdominal Exam GI & Abdominal Exam: Normal Bowel Sounds. absent: Distended, Rebound, Rigid, Tenderness - Neurological Exam Neurological exam: Alert, Oriented x3 - Psychiatric Exam Psychiatric exam: Normal Affect, Normal Mood - Skin Skin Exam: Dry, Normal Color, Warm Discharge Plan - Discharge Medications Prescriptions: Methylprednisolone [Medrol Dose Pack (21 tabs)] See Taper PO DAILY #21 mg - Follow Up Plan Condition: GOOD Disposition: HOME/ ROUTINE Instructions: Type 2 Diabetes, Acute Bronchitis, Adult (DC) Additional Instructions: 1. please follow up with your primary care physician within one week 2. please resume home meds, take as directed by your primary care physician 3. please take your Medrol does pack taper, as directed 4. If your symptoms return or worsen, please go to the nearest emergency department as soon as possible Referrals: Antony Johnson APN [Primary Care Provider] - <Franky Longoria - Last Filed: 04/02/18 14:49> Provider - Provider Date of Admission: 04/01/18 14:34 Attending physician: Franky Longoria MD Primary care physician: Antony Johnson APN Hospital Course - Lab Results Lab Results: Most Recent Lab Values WBC 10.0 10^3/ul (4.5-11.0) D 04/02/18 07:00 RBC 4.17 10^6/uL (3.5-6.1) 04/02/18 07:00 Hgb 11.4 g/dL (12.0-16.0) L 04/02/18 07:00 Hct 35.1 % (36.0-48.0) L 04/02/18 07:00 MCV 84.2 fl (80.0-105.0) 04/02/18 07:00 MCH 27.3 pg (25.0-35.0) 04/02/18 07:00 MCHC 32.5 g/dl (31.0-37.0) 04/02/18 07:00 RDW 13.7 % (11.5-14.5) 04/02/18 07:00 Plt Count 281 10^3/uL (120.0-450.0) 04/02/18 07:00 MPV 10.5 fl (7.0-11.0) 04/02/18 07:00 Gran % 89.0 % (50.0-68.0) H 04/02/18 07:00 Lymph % (Auto) 9.4 % (22.0-35.0) L 04/02/18 07:00 [place] % (Auto) 1.5 % (1.0-6.0) 04/02/18 07:00 Eos % (Auto) 0.0 % (1.5-5.0) L 04/02/18 07:00 Baso % (Auto) 0.1 % (0.0-3.0) 04/02/18 07:00 Gran # 8.89 (1.4-6.5) H 04/02/18 07:00 Lymph # (Auto) 0.9 (1.2-3.4) L 04/02/18 07:00 [place] # (Auto) 0.2 (0.1-0.6) 04/02/18 07:00 Eos # (Auto) 0.0 (0.0-0.7) 04/02/18 07:00 Baso # (Auto) 0.01 K/mm3 (0.0-2.0) 04/02/18 07:00 PT 12.0 SECONDS (9.4-12.5) 04/01/18 13:20 INR 1.04 04/01/18 13:20 APTT 27.1 Seconds (25.1-36.5) 04/01/18 13:20 D-Dimer, Quantitative 547 ng/mlDDU (0-243) H 04/01/18 13:20 pO2 124 mm/Hg (30-55) H 04/01/18 12:30 VBG pH 7.40 (7.32-7.43) 04/01/18 12:30 VBG pCO2 45.0 (40-60) 04/01/18 12:30 VBG HCO3 27.9 mmol/l (21-28) 04/01/18 12:30 VBG Total CO2 29.3 mmol.L (22-28) H 04/01/18 12:30 VBG O2 Sat (Calc) 99.7 % (40-65) H 04/01/18 12:30 VBG Base Excess 2.5 mmol/L (0.0-2.0) H 04/01/18 12:30 VBG Potassium 4.1 mmol/L (3.6-5.2) 04/01/18 12:30 Sodium 133.0 mmol/L (132-148) 04/01/18 12:30 Chloride 101.0 mmol/L (98-107) 04/01/18 12:30 Glucose 325 mg/dl (65-105) H 04/01/18 12:30 Lactate 1.3 mmol/L (0.7-2.1) 04/01/18 12:30 FiO2 21.0 % 04/01/18 12:30 Sodium 134 mmol/L (132-148) 04/02/18 07:00 Potassium 4.4 mmol/L (3.6-5.0) 04/02/18 07:00 Chloride 100 mmol/L (98-107) 04/02/18 07:00 Carbon Dioxide 26 mmol/L (21-33) 04/02/18 07:00 Anion Gap 12 (10-20) 04/02/18 07:00 BUN 12 mg/dL (7-21) 04/02/18 07:00 Creatinine 0.6 mg/dl (0.7-1.2) L 04/02/18 07:00 Est GFR ( Amer) > 60 04/02/18 07:00 Est GFR (Non-Af Amer) > 60 04/02/18 07:00 POC Glucose (mg/dL) 306 mg/dL (65-110) H 04/02/18 07:26 Random Glucose 337 mg/dL (70-110) H* 04/02/18 07:00 Calcium 8.9 mg/dL (8.4-10.5) 04/02/18 07:00 Magnesium 1.8 mg/dL (1.7-2.2) 04/01/18 12:00 Total Bilirubin 0.4 mg/dL (0.2-1.3) 04/02/18 07:00 AST 23 U/L (14-36) 04/02/18 07:00 ALT 40 U/L (7-56) 04/02/18 07:00 Alkaline Phosphatase 59 U/L (38-126) 04/02/18 07:00 NT-Pro-B Natriuret Pep 87.8 pg/mL (0-450) 04/01/18 12:00 Total Protein 6.4 g/dL (5.8-8.3) 04/02/18 07:00 Albumin 3.5 g/dL (3.0-4.8) 04/02/18 07:00 Globulin 2.9 gm/dL 04/02/18 07:00 Albumin/Globulin Ratio 1.2 (1.1-1.8) 04/02/18 07:00 Venous Blood Potassium 4.1 mmol/L (3.6-5.2) 04/01/18 12:30 Attending/Attestation - Attestation I have personally seen and examined this patient.: Yes I have fully participated in the care of the patient.: Yes I have reviewed all pertinent clinical information, including history, physical exam and plan: Yes Notes (Text): 04/02/18 14:47 37 year old female with past medical history of hypertension and diabetes who presented with cough and shortness of breath secondary to asthma exacerbation. D-dimer was also elevated. CT angiogram was negative for large, central PE; cannot exclude segmental or subsegmental pulmonary artery branches emboli. She underwent V/Q this afternoon which showed low probability for PE. She denies any calf tenderness or swelling. She was started on duonebs and iv steroids with improvement of symptoms. Patient is discharged home on medrol dosepack. Follow up with pmd. Franky Longoria MD Hospitalist.
--- NOTE | 2018-04-02 15:16 | CARD ---
APPROVED REPORT Date of service: 04/02/2018 EKG Measurement Heart [id number] [id number] <Conclusion> Normal sinus rhythm Normal ECG
--- NOTE | 2018-04-04 19:14 | NM ---
Date of service: 04/01/2018 COMPARISON: Not available TECHNIQUE: 33.0 mCi technetium 99-m DTPA aerosol. 4.0 mCI technetium 99-m MAA administered intravenously. FINDINGS: VENTILATION COMPONENT: Moderate defect likely left lower lobe. This does not correspond to radiographic abnormality on chest x-ray or CT. PERFUSION COMPONENT: Moderate defect likely left lower lobe matching the ventilatory defect. No mismatched perfusion defects. IMPRESSION: Lowprobability ventilation perfusion scan for pulmonary embolism.
== END 2018-04-02 18:45 | disposition home or self-care (01) ==
LOC: ED 11:10 → ERH 14:34 → 3RSO 16:20
PROVIDERS: ADMIT Internal Medicine; ATTEND Internal Medicine
DX: J45.901 Unspecified asthma with (acute) exacerbation (principal); I10 Essential (primary) hypertension; E11.9 Type 2 diabetes mellitus without complications; K21.9 Gastro-esophageal reflux disease without esophagitis
CPT/HCPCS: 36415; 71045; 78582; 80053; 82803; 82948; 83735; 83880; 85025; 85378; 85610; 85730; 93005; 94640; 96361; 96374; 96376; 99285; A9540; G0378; J2920; J7030